=== PATIENT | male | born 1950 | race Caucasian/White ===

== ENCOUNTER 2018-06-27 19:20 | Inpatient (IN) | payer MEDICARE ==
[2018-06-27] MEDS ORDERED: Ondansetron INJ* 2 MG/ML VIAL IV ONE (19:46)
[2018-06-27] MEDS ORDERED: Morphine VIAL* 10 MG/ML 1 ML VIAL IV ONE ×2 (19:46→21:43)
--- NOTE | 2018-06-27 19:50 | ED ---
GI/ HPI - HPI Summary HPI Summary: This pt is a 68 y/o male presenting to [facility] via EMS for back pain, nausea and vomiting. Pt reports lower back pain began yesterday along with diffuse abdominal pain. He notes this morning he began to have nausea and vomiting. Denies hx of kidney stones. Pt does not know if he has had a fever, today in the ED he does not have a fever. Denies any surgeries in his abdomen. PMHx includes DM and HTN. Per nurse's note, pt has not been able to take his daily medications due to feeling ill. Pt lives alone at home. - History of Current Complaint Chief Complaint: EDNauseaVomitDiarrh Time Seen by Provider: 06/27/18 19:33 Stated Complaint: GENERAL ILLNESS Hx Obtained From: Patient Onset/Duration: Started Days Ago - 1, Still Present Timing: Lasting Days - 1 Current Severity: Severe Pain Intensity: 10 Location of Pain: Diffuse Associated Signs and Symptoms: Positive: Back Pain, Nausea, Vomiting, Abdominal Pain. Negative: Fever, Chills Aggravating Factor(s): Nothing Alleviating Factor(s): Nothing - Allergy/Home Medications Allergies/Adverse Reactions: Allergies Allergy/AdvReac Type Severity Reaction Status Date / Time latex Allergy Rash Verified 06/27/18 19:41 Home Medications: Home Medications Dulaglutide [Trulicity] 0.75 mg SQ WEEKLY 06/27/18 [History Confirmed 06/27/18] Lovastatin [Altoprev] 10 mg PO DAILY 06/27/18 [History Confirmed 06/27/18] Tamsulosin HCl [Flomax] 0.4 mg PO DAILY 06/27/18 [History Confirmed 06/27/18] PMH/Surg Hx/FS Hx/Imm Hx Endocrine/Hematology History: Reports: Hx Diabetes Cardiovascular History: Reports: Hx Hypertension Infectious Disease History: No Infectious Disease History: Denies: Traveled Outside the [place] in Last 30 Days - Social History Alcohol Use: None Substance Use Type: Reports: None Smoking Status (MU): Light Every Day Tobacco Smoker Review of Systems Negative: Fever Positive: Abdominal Pain, Vomiting, Nausea Musculoskeletal: Other - POS: back pain All Other Systems Reviewed And Are Negative: Yes Physical Exam - Summary Physical Exam Summary: VITAL SIGNS: Reviewed. GENERAL: Patient is a well-developed and nourished male who is lying comfortable in the stretcher. Patient is not in any acute respiratory distress. HEAD AND FACE: No signs of trauma. No ecchymosis, hematomas or skull depressions. No sinus tenderness. EYES: PERRLA, EOMI x 2, No injected conjunctiva, no nystagmus. EARS: Hearing grossly intact. Ear canals and tympanic membranes are within normal limits. MOUTH: Oropharynx within normal limits. NECK: Supple, trachea is midline, no adenopathy, no JVD, no carotid bruit, no c- spine tenderness, neck with full ROM. CHEST: Symmetric, no tenderness at palpation LUNGS: Clear to auscultation bilaterally. No wheezing or crackles. CVS: Regular rate and rhythm, S1 and S2 present, no murmurs or gallops appreciated. ABDOMEN: Soft, abdomen is diffusely tender, more on the LLQ. Abdomen is distended. No rebound no guarding, and no masses palpated. Hypoactive bowel sounds. EXTREMITIES: FROM in all major joints, no edema, no cyanosis or clubbing. NEURO: Alert and oriented x 3. No acute neurological deficits. Speech is normal and follows commands. SKIN: Dry and warm Triage Information Reviewed: Yes Vital Signs On Initial Exam: Initial Vitals Temp Pulse Resp BP Pulse Ox 98.9 F 127 20 214/129 96 06/27/18 19:32 06/27/18 19:32 06/27/18 19:32 06/27/18 19:32 06/27/18 19:32 Vital Signs Reviewed: Yes Diagnostics - Vital Signs Vital Signs Temp Pulse Resp BP Pulse Ox 06/27/18 19:32 98.9 F 127 20 214/129 96 - Laboratory Lab Results: Lab Results 06/27/18 Range/Units 19:29 POC Glucose (mg/dL) 188 H (70-100) mg/dL Result Diagrams: 06/27/18 19:56 06/27/18 19:56 Lab Statement: Any lab studies that have been ordered have been reviewed, and results considered in the medical decision making process. - Radiology Chest XR Radiology Interpretation Completed By: ED Physician Summary of Radiographic Findings: No acute process. Pending official radiology report. - CT Abdomen/Pelvis CT CT Interpretation Completed By: Radiologist Summary of CT Findings: IMPRESSION: 1. Findings suggesting early cholecystitis which can be confirmed with ultrasound. 2. Multiple hepatic cysts. No follow up indicated. 3. Bosniak type II renal cysts. No follow up indicated. Dr. Olivia has reviewed this report. - Ultrasound No standard instances Ultrasound Interpretation Completed By: Radiologist Summary of Ultrasound Findings: Gallbladder US IMPRESSION: 1. Equivocal findings of acute cholecystitis. Consider follow up HIDA scan. 2. Hepatic steatosis. 3. Simple hepatic and right renal cysts. No follow up indicated. Dr. Olivia has reviewed this report. - EKG 20:13 Cardiac Rate: NL - at 99 bpm EKG Rhythm: Sinus Rhythm Ectopy: PACs Summary of EKG Findings: Nonspecific T wave changes. Re-Evaluation - Re-Evaluation First Eval Re-Evaluation Time: 19:46 Comment: 200/101 BP manually. GIGU Course/Dx - Course Assessment/Plan: Pt is a 68 y/o male, with hx of DM and HTN, who presents for back pain, nausea and vomiting. Pt reports lower back pain began yesterday along with diffuse abdominal pain. He notes this morning he began to have nausea and vomiting. Denies hx of kidney stones. Pt does not know if he has had a fever, today in the ED he does not have a fever. Blood work, urinalysis, CT, US, EKG obtained. Labs show WBC of 15.7, glucose of 200. Abdomen/Pelvis CT shows 1. Findings suggesting early cholecystitis which can be confirmed with ultrasound. 2. Multiple hepatic cysts. No follow up indicated. 3. Bosniak type II renal cysts. No follow up indicated. Gallbladder US shows 1. Equivocal findings of acute cholecystitis. Consider follow up HIDA scan. 2. Hepatic steatosis. 3. Simple hepatic and right renal cysts. No follow up indicated. In the ED course the pt was given morphine, zofran, labetalol, hydralazine, zosyn. I discussed pt care with Dr. Cabello, surgeon, who consulted on the pt. Discussed the case with Dr. Hercules, hospitalist, who accepted the pt for admission. - Diagnoses Provider Diagnoses: Cholecystitis - Physician Notifications Discussed Care Of Patient With: Jayjay Cabello Time Discussed With Above Provider: 21:48 Instructed by Provider To: Other - I discussed pt care with Dr. Cabello, surgeon , who will see the pt. [23:17] Discussed with Dr. Hercules, hospitalist, who accepted the pt for admission. Discharge - Sign-Out/Discharge Documenting (check all that apply): Patient Departure - Admit to [facility] [place] Patient Received Moderate/Deep Sedation with Procedure: No - Discharge Plan Condition: Stable Disposition: ADMITTED TO [facility] Referrals: Kan Rojas DO [Primary Care Provider] - - Attestation Statements Document Initiated by Scribe: Yes Documenting Scribe: Kezia Lee Provider For Whom Scribe is Documenting (Include Credential): Tita Olivia MD Scribe Attestation: Kezia Pinedo, scribed for Tita Olivia MD on 06/28/18 at 0020. Status of Scribe Document: Ready
[2018-06-27 20:06] LABS: Hematocrit 52 % (42-52); Mean Corpuscular HGB Conc 35 g/dl (31-36); Mean Corpuscular Hemoglobin 31 pg (27-31); Mean Corpuscular Volume 90 fL (80-94); Platelet Count 261 10^3/ul (150-450); Red Cell Distribution Width 14 % (10.5-15); White Blood Count 15.7 10^3/ul (3.5-10.8)
[2018-06-27 20:22] LABS: Albumin 4.6 g/dL (3.2-5.2); Albumin/Globulin Ratio 1.8 (1-3); BUN/Creatinine Ratio 12.9 (8-20); C Reactive Protein 10.26 mg/L (<8.01); Calcium 9.8 mg/dL (8.6-10.3); EGFR African American 88.4 (>60); Globulin 2.6 g/dL (2-4); Magnesium 1.7 mg/dL (1.9-2.7); Potassium 3.6 mmol/L (3.5-5.0); Total Bilirubin 0.7 mg/dL (0.2-1.0); Total Protein 7.2 g/dL (6.4-8.9)
[2018-06-27 20:24] LABS: Activated Partial Thrombo Time 32.1 seconds (26.0-36.3); INR 0.98 (0.77-1.02)
[2018-06-27] MEDS ORDERED: Iodixanol* (CONTRAST) 320 MG/ML 100 ML SDV IV ONE (20:24)
[2018-06-27 20:39] LABS: ABS Basophils 0.1 10^3/ul (0-0.2); ABS Eosinophils 0 10^3/ul (0-0.6); ABS Lymphocytes 1.7 10^3/ul (1.0-4.8); ABS Monocytes 1.1 10^3/ul (0-0.8); ABS Neutrophils 12.8 10^3/ul (1.5-7.7); ABS Nucleated RBC 0 10^3/ul; Eosinophil % 0.1 %; Nucleated Red Blood Cells % 0
[2018-06-27] MEDS ORDERED: Piperacillin/Tazobac ADVAN(*) 3.375 GM in NS 0.9% 100 ML* 100 ML IVPB ONE (21:44)
[2018-06-27 21:55] LABS: Urine Appearance Clear; Urine Bacteria Absent (Absent); Urine Bilirubin Negative (Negative); Urine Blood 1+ (Negative); Urine Color Yellow; Urine Glucose 3+(>=500 mg/dL) (Negative); Urine Ketones 1+ (Negative); Urine Nitrite Negative (Negative); Urine Protein 2+(100 mg/dL) (Negative); Urine Red Blood Cell Trace(0-2/hpf) (Absent); Urine Specific Gravity 1.042 (1.010-1.030); Urine Urobilinogen Negative (Negative); Urine White Blood Cell Trace(0-5/hpf) (Absent)
[2018-06-27] MEDS ORDERED: Labetalol IV* 5 MG/ML 20 ML VIAL IV PUSH ONE (22:07)
[2018-06-27] MEDS ORDERED: hydrALAZINE IV* 20 MG/ML VIAL IV SLOW PU ONE (22:11)
[2018-06-27] MEDS ORDERED: Docusate CAP* 100 MG PO PRN (23:43)
[2018-06-27] MEDS ORDERED: Senna TAB PO PRN (23:43)
[2018-06-27] MEDS ORDERED: Al Hydrox/Mg Hydrox/Simet LIQ* 30 ML UDC PO PRN (23:43)
[2018-06-27] MEDS ORDERED: Acetaminophen TAB* 325 MG PO PRN (23:43)
[2018-06-27] MEDS ORDERED: Ondansetron INJ* 2 MG/ML VIAL IV PRN (23:43)
[2018-06-27] MEDS ORDERED: Zosyn per Pharmacy* NOTE FOLLOW UP SCH (23:45)
[2018-06-27] MEDS ORDERED: NS 0.9% 1000 ML** 1,000 ML IV SCH (23:45)
[2018-06-27] MEDS ORDERED: Magnesium Sulfate 2 GM IV* 2 GM/50 ML BAG IVPB ONE (23:49)
--- NOTE | 2018-06-28 00:43 | CONS ---
CONSULTATION REPORT: DATE OF CONSULT: 06/27/18 CHIEF COMPLAINT: Abdominal pain. HISTORY OF PRESENT ILLNESS: This is a pleasant 68-year-old gentleman who presented to the emergency room with a history of abdominal pain since yesterday. He had loose bowel movements in the afternoon which developed into more upper abdominal discomfort late in the evening today. He came to the emergency room here today. Workup here revealed likely early cholecystitis by CT scan. Ultrasound is pending. He has had persistent discomfort in his upper abdomen. PAST MEDICAL HISTORY: Diabetes and hypertension, on multiple medications for both. PAST SURGICAL HISTORY: No prior abdominal surgery. He describes a scrotal urologic related surgery which is unclear. SOCIAL HISTORY: He is here with his 2 brothers. REVIEW OF SYSTEMS: As per history of present illness. PHYSICAL EXAM: General: A pleasant gentleman complaining of abdominal pain. HEENT: His sclerae are anicteric. The oral mucosa is pink, somewhat dry. Neck is supple. Heart: S1, S2. Lungs: Clear anteriorly. Abdomen: Obese, soft, tender on the right side. Skin: No rash, petechiae, or jaundice. Neuro Exam: Grossly intact. LABORATORY DATA: Laboratory studies show elevated white blood cell count of 15.7. BUN 13, creatinine 0.1, glucose 200, lactic acid 1.6, total bili 0.7, amylase 33, lipase 20. IMPRESSION: Likely cholecystitis, diabetes, hypertension. PLAN: Plan will be for admission, evaluation by the medical service and potential cholecystectomy pending his response to IV antibiotics, hydration, and rest. [id number]/CPS #: [id number] MTDD
--- NOTE | 2018-06-28 01:33 | HP ---
CC: Kan Rojas DO * HISTORY AND PHYSICAL: DATE OF ADMISSION: 06/27/18 TIME OF EVALUATION: 2330 PRIMARY CARE PHYSICIAN: Kan Rojas DO CHIEF COMPLAINT: Abdominal pain, nausea, vomiting, diarrhea. HISTORY OF PRESENT ILLNESS: This is a 68-year-old male with a past medical history of diabetes, who presented to the emergency room with 2 days of worsening abdominal pain, nausea, vomiting, and diarrhea. The patient states his last meal was steak and milk and shortly thereafter he developed diffuse abdominal pain mostly in the periumbilical epigastric region with nausea, vomiting, and diarrhea, nonbloody. He has had not fevers, no shortness of breath, no chest pain. He does have somewhat of a cough. He states his sugars have been elevated over the past 2 days. Otherwise, review of systems is negative. The patient states he lives at home alone. He is independent of his ADLs. He does usually get around with a motorized scooter due to neuropathy and pain of his lower extremities secondary to his diabetes. The patient does not take the stairs due to his diabetes, but is independent of his ADLs and does not get exertional chest pain or shortness of breath. In the emergency room, the patient had labs, imaging. He was seen by Dr. Cabello from Surgery, who recommended admission for the hospitalist service for his acute cholecystitis. In the emergency room, the patient was given Zosyn , Zofran, a total of 8 mg of morphine and 10 mg of hydralazine. PAST MEDICAL HISTORY: 1. Diabetes, on insulin. 2. Diabetic neuropathy. 3. BPH. 4. Hyperlipidemia. MEDICATIONS: 1. Aspirin 81 mg p.o. daily. 2. Tamsulosin 0.4 mg daily. 3. Lovastatin 10 mg daily. 4. Trulicity 0.75 mg subcu weekly. The patient states he takes 2 other insulins, he is not sure of the name, one is 85 units in the morning and then 35 units before meals. ALLERGIES: LATEX. FAMILY HISTORY: Reviewed and noncontributory. SOCIAL HISTORY: As mentioned, the patient lives alone. He gets around with a motorized scooter. He is retired. He does smoke a pipe per day for the past 30 years. He drinks alcohol about 1 time a month. His healthcare proxy is his son, Shiva. Code status is full code. REVIEW OF SYSTEMS: A 14-point review of systems as mentioned in the HPI, otherwise negative. PHYSICAL EXAMINATION GENERAL: No acute distress, some mild abdominal discomfort. VITAL SIGNS: Temp 98.9, pulse rate is 93, respiratory rate 18, oxygen saturation 94% on room air, and blood pressure 142/78. HEENT: Head: Normocephalic. Pupils equal and reactive. Anicteric. Oropharynx: Mucous membranes are dry. NECK: Supple. No lymphadenopathy. RESPIRATORY: Diminished breath sounds. No wheezes, rhonchi, or rales. No increased work of breathing. CARDIAC: Tachycardic with ectopic beats. Soft systolic murmur heard throughout. ABDOMEN: Hyperactive bowel sounds, morbidly obese, soft, some diffuse tenderness. No rebound, no guarding. EXTREMITIES: No clubbing, cyanosis, or edema. NEUROLOGIC: Alert and oriented x3. No gross focal neurologic deficits. LABORATORY DATA: White count 15.7, hemoglobin 18, hematocrit 52, platelets 361. INR 0.98. Sodium 138, potassium 3.6, chloride 101, bicarb 25, BUN 13, creatinine 1.01, glucose 200. Lactic acid 1.6, mag is 1.7, CRP is 10. Urine is +2 ketones, +1 blood, +3 glucose. Specific gravity elevated at 1.042. RADIOGRAPHIC DATA: Abdomen and pelvis CT, findings suggestive of early cholecystitis, multiple hepatic cysts, Bosniak type 2 renal cyst. Gallbladder ultrasound, equivocal finding of acute cholecystitis, consider followup HIDA scan; hepatic steatosis; simple hepatic and right renal cysts. EKG, sinus tachycardia with PACs, some non-specific ST changes. No prior EKG to compare to. Chest x-ray, no acute findings. ASSESSMENT: This is a 68-year-old male with a past medical history of diabetes , on insulin, presented to the emergency room with acute onset of abdominal pain , nausea, vomiting, and diarrhea, found to have early onset acute cholecystitis. 1. Nausea, vomiting, diarrhea, and abdominal pain. Assessment: The patient's findings based on imaging are consistent with early onset acute cholecystitis. The patient with an elevated white count as well. He was given a dose of Zosyn. Plan, Dr. Cabello evaluated the patient in the emergency room. He recommended to keep him n.p.o. and potentially will have surgery in the morning. We will continue him on IV fluids and Zosyn, pain control, and antiemetics. 2. Chronic medical problems, diabetes. We will check his hemoglobin A1c. We will hold his Trulicity. We will lower his Lantus dose in the setting of n.p.o. and not entirely clear that if he is in fact taking Lantus at [address] him on a regular insulin of sliding scale q.6 hours while he is n.p.o. 3. Benign prostatic hypertrophy. Continue his tamsulosin. 4. Hyperlipidemia. We will hold his lovastatin. We do not see this is on formulary. 5. FEN: NPO with ice chips and IV fluids. 6. DVT prophylaxis: The patient score is high risk. I will put him on heparin subcu t.i.d. 7. Code status: Full code. PATIENT TIME: Greater than 45 minutes spent doing the history and physical, more than half the time spent in direct patient contact. [id number]/CPS #: [id number] RODDY
[2018-06-28] MEDS: Insulin REGULAR(*) 1 UNITS UNIT SUBCUT SCH ×4 (01:53→17:40)
[2018-06-28] MEDS: Morphine INJ* 2 MG/ML 1 ML SYRINGE (TWO MG - NEW SYRINGE VERSION) IV PRN ×2 (01:57→07:51)
[2018-06-28] MEDS: ZOSYN 3.375 GM Q8H per EXTENDED INFUSION IVPB SCH ×4 (03:30→12:40)
[2018-06-28 05:59] LABS: ABS Basophils 0.1 10^3/ul (0-0.2); ABS Eosinophils 0 10^3/ul (0-0.6); ABS Lymphocytes 2.3 10^3/ul (1.0-4.8); ABS Monocytes 1.5 10^3/ul (0-0.8); ABS Neutrophils 9.6 10^3/ul (1.5-7.7); ABS Nucleated RBC 0 10^3/ul; Eosinophil % 0.4 %; Hematocrit 49 % (42-52); Hemoglobin 16.8 g/dl (14.0-18.0); Lymphocyte % 17.3 %; Mean Corpuscular HGB Conc 34 g/dl (31-36); Mean Corpuscular Hemoglobin 31 pg (27-31); Mean Corpuscular Volume 90 fL (80-94); Mean Platelet Volume 8.1 fL (7.4-10.4); Nucleated Red Blood Cells % 0; Platelet Count 231 10^3/ul (150-450); Red Blood Count 5.47 10^6/ul (4.00-5.40); Red Cell Distribution Width 14 % (10.5-15); White Blood Count 13.6 10^3/ul (3.5-10.8)
[2018-06-28 06:16] LABS: BUN/Creatinine Ratio 13.6 (8-20); Calcium 9.1 mg/dL (8.6-10.3); EGFR African American 86.4 (>60); EGFR Non-African American 71.4 (>60); Magnesium 2.3 mg/dL (1.9-2.7); Potassium 3.2 mmol/L (3.5-5.0)
[2018-06-28] MEDS: Insulin GLARGINE(*) 1 UNITS UNIT SUBCUT SCH (07:51)
[2018-06-28] MEDS: Heparin VIAL(*) 5000 UNITS/ML VIAL (FIVE THOUSAND) SUBCUT SCH ×3 (07:52→21:48)
[2018-06-28] MEDS ORDERED: DiMENhydriNATE IV* 50 MG/ML VIAL IV PUSH ONE (10:50)
[2018-06-28] MEDS ORDERED: Ondansetron INJ* 2 MG/ML VIAL ONE ×2 (10:50→12:43)
[2018-06-28] MEDS ORDERED: Famotidine IV* 10 MG/ML 2 ML (20 mg) IV ONE (10:50)
[2018-06-28] MEDS ORDERED: Buffered Lidocaine 1% SYRIN* 1 ML/SYRINGE INTRADERM ONE (10:50)
[2018-06-28] MEDS ORDERED: ceFAZolin 2 GM PREMIX in ORs 2 GM/50 ML BAG IVPB ONE (12:14)
[2018-06-28] MEDS ORDERED: KCL 20 MEQ/100 ML IVPREMIX* 20 MEQ/100 ML BAG IV ONE (12:15)
[2018-06-28] MEDS ORDERED: Cisatracurium* 2 MG/ML MDV 5 ML ONE (12:43)
[2018-06-28] MEDS ORDERED: Famotidine IV* 10 MG/ML 2 ML (20 mg) ONE (12:43)
[2018-06-28] MEDS ORDERED: Lidocaine 2% PF * 5 ML VIAL ONE (12:43)
[2018-06-28] MEDS ORDERED: Dexamethasone IV* 4 MG/ML 1 ML (4 MG) ONE ×2 (12:43→13:50)
[2018-06-28] MEDS ORDERED: Ketorolac INJ* 30 MG/ML 1 ML VIAL ONE (12:43)
[2018-06-28] MEDS ORDERED: Ondansetron ODT TAB* 4 MG ONE (12:43)
[2018-06-28] MEDS ORDERED: Midazolam* 1 MG/ML 5 ML VIAL (5 MG) ONE (12:43)
[2018-06-28] MEDS ORDERED: fentaNYL* 50 MCG/ML 5 ML VIAL (250 MCG VIAL) ONE (12:43)
[2018-06-28] MEDS ORDERED: Propofol* 10 MG/ML 20 ML BTL ONE (12:43)
[2018-06-28] MEDS: Lactated Ringers 1000 ML Bag* 1,000 ML IV SCH ×2 (12:45→16:15)
[2018-06-28] MEDS ORDERED: EPHEDrine (Pressors)* 50 MG/ML VIAL ONE (13:11)
[2018-06-28] MEDS ORDERED: Bupivacaine 0.5% W/EPI SDV* 30 ML VIAL ONE (13:23)
[2018-06-28] MEDS ORDERED: Phenylephrine INJ* 10 MG/ML 1 ML VIAL (10 MG) ONE (13:40)
[2018-06-28] MEDS ORDERED: Metoprolol Tartrate IV* 1 MG/ML 5 ML VIAL ONE (13:41)
[2018-06-28] MEDS ORDERED: Neostigmine Methylsulfate* 1 MG/ML 10 ML VIAL (1 mg/ml) ONE (13:50)
[2018-06-28] MEDS ORDERED: fentaNYL* 50 MCG/ML 2 ML VIAL (100 MCG VIAL) IV PRN (13:56)
[2018-06-28] MEDS ORDERED: Naloxone* 0.4 MG/ML 1 ML VIAL IV PRN (13:56)
[2018-06-28] MEDS ORDERED: DiMENhydriNATE IV* 50 MG/ML VIAL IV PUSH PRN (13:56)
--- NOTE | 2018-06-28 17:53 | OP ---
DATE OF OPERATION: 06/28/18 - ROOM #411 DATE OF : 46 SURGEON: Jayjay Cabello MD PRE-OP DIAGNOSIS: Cholecystitis. POST-OP DIAGNOSIS: Cholecystitis. OPERATIVE PROCEDURE: Laparoscopic cholecystectomy. INDICATIONS FOR PROCEDURE: Cholecystitis. Risks included but not limited to bleeding, infection, injury to intraabdominal contents including the bowel, bile duct, and liver were explained to the patient. He seemed to understand and agreed to the procedure and all questions were answered. DESCRIPTION OF PROCEDURE: The patient was taken to the operating room, placed supine. Preoperative antibiotics were given. After the successful induction of general endotracheal anesthesia, the abdomen was prepped and draped in sterile fashion. A subxiphoid 5 mm trochar was placed under direct visualization of the camera using a bladeless Optiview trocar. Pneumoperitoneum was achieved at 15 mmHg. Camera was placed in the abdomen. The abdomen was scanned. There was no obvious injury from trocar placement. An umbilical and 2 right-sided trocars were placed, 12 mm and two 5 mm respectively. The fundus of the gallbladder was grasped and retracted up and over the liver. The cystic duct was identified, isolated, clipped, and divided. The cystic artery was identified, isolated, clipped, and divided. The gallbladder was removed from the hepatic bed using scissors and cautery. It was placed into an Endo bag and removed through the umbilical port site. The right upper quadrant was irrigated and aspirated dry. EBL minimal. Hemostasis was intact. The umbilical fascia was closed with 0 Vicryl and the skin was closed with Monocryl and glue at each site. He tolerated the procedure well. He was extubated and taken to recovery in stable condition. [id number]/[facility] #: [id number] [facility]
[2018-06-28] MEDS ORDERED: Tamsulosin CAP* 0.4 MG PO SCH (21:00)
[2018-06-28] MEDS ORDERED: Dextrose 50% Syringe 50 ML* 25 GM/50 ML SYRINGE IV PUSH PRN ×2 (21:21)
[2018-06-28] MEDS: Insulin LISPRO* 1 UNITS UNIT SUBCUT SCH ×2 (21:56→22:03)
[2018-06-29] MEDS: Heparin VIAL(*) 5000 UNITS/ML VIAL (FIVE THOUSAND) SUBCUT SCH (07:27)
[2018-06-29 07:44] VITALS: BP 120/66
--- NOTE | 2018-06-29 08:29 | PN ---
Subjective Date of Service: 06/28/18 Interval History: Pain improved. Hungry. No new c/o. Objective Active Medications: Acetaminophen (Tylenol Tab*) 650 mg PO Q4H PRN PRN Reason: FEVER/PAIN Al Hydrox/Mg Hydrox/Simethicone (Maalox Plus*) 30 ml PO Q6H PRN PRN Reason: INDIGESTION Dextrose (D50w Syringe 50 Ml*) 12.5 gm IV PUSH .FOR FS < 60 - SS PRN PRN Reason: FS < 60 Dimenhydrinate (Dramamine Iv*) 25 mg IV PUSH ONCE PRN PRN Reason: NAUSEA/VOMITING Docusate Sodium (Colace Cap*) 100 mg PO BID PRN PRN Reason: CONSTIPATION Heparin Sodium (Porcine) (Heparin Vial(*)) 5,000 units SUBCUT Q8HR [facility] Last Admin: 06/29/18 07:27 Dose: 5,000 units Lactated Ringer's (Lactated Ringers 1000 Ml Bag*) 1,000 mls @ 125 mls/hr IV PER RATE [facility] Last Admin: 06/28/18 16:15 Dose: 125 mls/hr Influenza Virus Vaccine (Fluarix *Quad* *) 0.5 ml IM .ONCE ONE Stop: 06/29/18 09:01 Insulin Glargine (Lantus(*)) 40 units SUBCUT Q24H [facility] Last Admin: 06/28/18 07:51 Dose: 40 units Insulin Human Lispro (Humalog*) 0 units SUBCUT [facility]; Protocol Last Admin: 06/28/18 22:03 Dose: Not Given Insulin Human Lispro (Humalog*) 0 units SUBCUT [facility]; Protocol Last Admin: 06/28/18 21:56 Dose: 9 units Morphine Sulfate (Morphine Inj ((Syringe))*) 2 mg IV Q4H PRN PRN Reason: PAIN - MILD Last Admin: 06/28/18 07:51 Dose: 2 mg Ondansetron HCl (Zofran Inj*) 4 mg IV Q4H PRN PRN Reason: NAUSEA/VOMITING Senna (Senokot Tab*) 1 tab PO BID PRN PRN Reason: CONSTIPATION Tamsulosin HCl (Flomax Cap*) 0.4 mg PO BEDTIME [facility] Last Admin: 06/28/18 21:26 Dose: 0.4 mg Vital Signs - 8 hr 06/29/18 06/29/18 06/29/18 00:26 01:10 01:53 Temperature 98.3 F Pulse Rate 74 Respiratory 18 Rate Blood Pressure 131/66 (mmHg) O2 Sat by Pulse 95 98 97 Oximetry 06/29/18 06/29/18 06/29/18 03:16 07:22 07:43 Temperature 98.4 F 97.6 F Pulse Rate 75 81 Respiratory 18 17 16 Rate Blood Pressure 138/65 120/66 (mmHg) O2 Sat by Pulse 96 99 99 Oximetry Oxygen Devices in Use Now: None Appearance: Alert, partly up in bed. In good spirits. Looks comfortable. Eyes: No Scleral Icterus Abdominal: No Hepatosplenomegaly, - - mild to mod RUQ tenderness, nl BS Result Diagrams: 06/28/18 05:42 06/28/18 05:42 Additional Lab and Data: Lab Results 06/27/18 Range/Units 19:29 POC Glucose (mg/dL) 188 H (70-100) mg/dL Microbiology and Other Data: Microbiology 06/27/18 19:56 Aerobic Blood Culture - Preliminary Blood Venous Anaerobic Blood Culture - Preliminary Blood MRSA/MSSA (PCR) - Final Mrsa Negative S.aureus Negative 06/27/18 19:56 Aerobic Blood Culture - Preliminary Blood Venous No Growth Day 1 Anaerobic Blood Culture - Preliminary No Growth Day 1 06/27/18 21:44 Urine Culture - Final Urine No Growth (<1,000 CFU/mL) Assess/Plan/Problems-Billing Assessment: - Patient Problems (1) Cholecystitis Current Visit: Yes Status: Acute Code(s): K81.9 - CHOLECYSTITIS, UNSPECIFIED SNOMED Code(s): 71959181 Comment: Continue pip/rosemary. Surgical managment per Dr. Cabello. (2) Diabetes Current Visit: Yes Status: Acute Code(s): E11.9 - TYPE 2 DIABETES MELLITUS WITHOUT COMPLICATIONS SNOMED Code(s): 29734972 Comment: Lantus and SS Lispro. (3) BPH (benign prostatic hyperplasia) Current Visit: Yes Status: Acute Code(s): N40.0 - BENIGN PROSTATIC HYPERPLASIA WITHOUT LOWER URINRY TRACT SYMP SNOMED Code(s): 013120103 Comment: Continue tamsulosin. (4) Hyperlipidemia Current Visit: Yes Status: Acute Code(s): E78.5 - HYPERLIPIDEMIA, UNSPECIFIED SNOMED Code(s): 33147014 Comment: Resume home statin on discharge.
--- NOTE | 2018-06-29 08:47 | PN ---
Subjective Date of Service: 06/29/18 Interval History: Mild chronic back pain at his baseline. No abd pain, nausea. Good appetite. Anxious to go home. Objective Active Medications: Acetaminophen (Tylenol Tab*) 650 mg PO Q4H PRN PRN Reason: FEVER/PAIN Al Hydrox/Mg Hydrox/Simethicone (Maalox Plus*) 30 ml PO Q6H PRN PRN Reason: INDIGESTION Dextrose (D50w Syringe 50 Ml*) 12.5 gm IV PUSH .FOR FS < 60 - SS PRN PRN Reason: FS < 60 Dimenhydrinate (Dramamine Iv*) 25 mg IV PUSH ONCE PRN PRN Reason: NAUSEA/VOMITING Docusate Sodium (Colace Cap*) 100 mg PO BID PRN PRN Reason: CONSTIPATION Heparin Sodium (Porcine) (Heparin Vial(*)) 5,000 units SUBCUT Q8HR [facility] Last Admin: 06/29/18 07:27 Dose: 5,000 units Lactated Ringer's (Lactated Ringers 1000 Ml Bag*) 1,000 mls @ 125 mls/hr IV PER RATE [facility] Last Admin: 06/28/18 16:15 Dose: 125 mls/hr Influenza Virus Vaccine (Fluarix *Quad* *) 0.5 ml IM .ONCE ONE Stop: 06/29/18 09:01 Insulin Glargine (Lantus(*)) 40 units SUBCUT Q24H [facility] Last Admin: 06/28/18 07:51 Dose: 40 units Insulin Human Lispro (Humalog*) 0 units SUBCUT [facility]; Protocol Last Admin: 06/28/18 22:03 Dose: Not Given Insulin Human Lispro (Humalog*) 0 units SUBCUT [facility]; Protocol Last Admin: 06/28/18 21:56 Dose: 9 units Morphine Sulfate (Morphine Inj ((Syringe))*) 2 mg IV Q4H PRN PRN Reason: PAIN - MILD Last Admin: 06/28/18 07:51 Dose: 2 mg Ondansetron HCl (Zofran Inj*) 4 mg IV Q4H PRN PRN Reason: NAUSEA/VOMITING Senna (Senokot Tab*) 1 tab PO BID PRN PRN Reason: CONSTIPATION Tamsulosin HCl (Flomax Cap*) 0.4 mg PO BEDTIME [facility] Last Admin: 06/28/18 21:26 Dose: 0.4 mg Vital Signs - 8 hr 06/29/18 06/29/18 06/29/18 01:10 01:53 03:16 Temperature 98.3 F 98.4 F Pulse Rate 74 75 Respiratory 18 18 Rate Blood Pressure 131/66 138/65 (mmHg) O2 Sat by Pulse 98 97 96 Oximetry 06/29/18 06/29/18 07:22 07:43 Temperature 97.6 F Pulse Rate 81 Respiratory 17 16 Rate Blood Pressure 120/66 (mmHg) O2 Sat by Pulse 99 99 Oximetry Oxygen Devices in Use Now: None Appearance: Alert, sitting up in bed. In good spirits. Looks comfortable. Eyes: No Scleral Icterus Abdominal: NL Sounds; No Tenderness; No Distention, No Hepatosplenomegaly, - - surgical wounds look good Extremities: No Edema, No Clubbing, Cyanosis, - Skin: No Rash or Ulcers, No Nodules or Sclerosis, - Neurological: Alert and Oriented x 3, NL Sensation Result Diagrams: 06/28/18 05:42 06/28/18 05:42 Additional Lab and Data: Lab Results 06/27/18 Range/Units 19:29 POC Glucose (mg/dL) 188 H (70-100) mg/dL Microbiology and Other Data: Microbiology 06/27/18 19:56 Aerobic Blood Culture - Preliminary Blood Venous Anaerobic Blood Culture - Preliminary Blood MRSA/MSSA (PCR) - Final Mrsa Negative S.aureus Negative 06/27/18 19:56 Aerobic Blood Culture - Preliminary Blood Venous No Growth Day 1 Anaerobic Blood Culture - Preliminary No Growth Day 1 06/27/18 21:44 Urine Culture - Final Urine No Growth (<1,000 CFU/mL) Assess/Plan/Problems-Billing Assessment: - Patient Problems (1) Cholecystitis Current Visit: Yes Status: Acute Code(s): K81.9 - CHOLECYSTITIS, UNSPECIFIED SNOMED Code(s): 86470536 Comment: S/P lap maco 06/28/18. Fup per Dr. Cabello. (2) Diabetes Current Visit: Yes Status: Acute Code(s): E11.9 - TYPE 2 DIABETES MELLITUS WITHOUT COMPLICATIONS SNOMED Code(s): 92033490 Comment: Lantus and SS Lispro. (3) BPH (benign prostatic hyperplasia) Current Visit: Yes Status: Acute Code(s): N40.0 - BENIGN PROSTATIC HYPERPLASIA WITHOUT LOWER URINRY TRACT SYMP SNOMED Code(s): 261265712 Comment: Continue tamsulosin. (4) Hyperlipidemia Current Visit: Yes Status: Acute Code(s): E78.5 - HYPERLIPIDEMIA, UNSPECIFIED SNOMED Code(s): 56409417 Comment: Resume home statin on discharge.
[2018-06-29] MEDS: Insulin LISPRO* 1 UNITS UNIT SUBCUT SCH ×2 (09:16)
[2018-06-29] MEDS: Insulin GLARGINE(*) 1 UNITS UNIT SUBCUT SCH (09:18)
--- NOTE | 2018-06-29 11:00 | PN ---
Progress Note - Progress Note Date of Service: 06/29/18 SOAP: Subjective: []no pain, passing flatus, wants to go home, tolerating diet Objective: []benign abdomen, incisions CDI Assessment: []stable postop Plan: []DC to home, fu as needed
--- NOTE | 2018-06-29 11:57 | PN ---
Progress Note - Progress Note Date of Service: 06/29/18 Note: Time spent on discharge including exam of patient, discussion with patient, nurse, CM, PA Sanchez, review of EMR and preparation of discharge documents is 35 minutes.
--- NOTE | 2018-06-29 13:07 | DS ---
CC: Dr. Kan Rojas; Dr. Cabello DISCHARGE SUMMARY: DATE OF ADMISSION: DATE OF DISCHARGE: 06/29/18 HISTORY: This 68-year-old man presented with abdominal pain, nausea, vomiting, and diarrhea. His rueda gars have been somewhat elevated in the past 2 days. He was felt to have acute cholecystitis and was started on piperacillin/tazobactam. Dr. Cabello saw him in consultation. He did laparoscopic cholec ystectomy on 06/28/18. He felt that no further antibiotics were needed. The patient tolerated the s urgery very well and was in good shape on discharge. Blood sugars were in adequate control. FINAL DIAGNOSES: 1. Cholecystitis. 2. Diabetes. 3. Benign prostatic hypertrophy. 4. Hyperlipidemia. DISCHARGE MEDICATIONS: 1. Tamsulosin 0.4 mg daily. 2. Dulaglutide 0.75 mg subcu weekly. 3. Lovastatin 10 mg daily. 4. Degludec insulin 85 units daily. CONDITION ON DISCHARGE: Improved. DISPOSITION ON DISCHARGE: Discharged home. [id number]/[facility] #: [id number]
== END 2018-06-29 12:00 | disposition home or self-care (01) | DRG 419 ==
LOC: ED 19:20 → MED 06-28 00:31
PROVIDERS: ADMIT Pediatrics; ATTEND Internal Medicine
PROC: 0FT44ZZ Resection of Gallbladder, Percutaneous Endoscopic Approach (ICD-10-PCS; principal; 2018-06-28 12:45)
DX: K81.0 Acute cholecystitis (principal); N40.0 Benign prostatic hyperplasia without lower urinary tract symptoms; E78.5 Hyperlipidemia, unspecified; E11.40 Type 2 diabetes mellitus with diabetic neuropathy, unspecified; I10 Essential (primary) hypertension; K76.0 Fatty (change of) liver, not elsewhere classified; K76.89 Other specified diseases of liver; N28.1 Cyst of kidney, acquired; G89.29 Other chronic pain; M54.9 Dorsalgia, unspecified; Z91.040 Latex allergy status; Z72.89 Other problems related to lifestyle; Z79.4 Long term (current) use of insulin; F17.290 Nicotine dependence, other tobacco product, uncomplicated
CPT/HCPCS: 36415; 71045; 74177; 76705; 80048; 80053; 81003; 81015; 82150; 83036; 83605; 83690; 83735; 85025; 85610; 85730; 86140; 86850; 86900; 86901; 87040; 87077; 87086; 87150; 87205; 88304; 90686; 93005; 99284; A9270-GY; J0360; J0690; J1100; J1644; J1885; J2250; J2270; J2405; J2543; J2704; J2710; J3010; J3475; J3480; J3490; Q9967

== ENCOUNTER 2018-10-16 12:57 | Emergency (ER) | payer MEDICARE, OTHER ==
[2018-10-16] MEDS ORDERED: NS 0.9% 1000 ML** 2,000 ML IV ONE (13:46)
--- NOTE | 2018-10-16 13:50 | ED ---
HPI Diabetic - HPI Summary HPI Summary: A 68 y/o male brought in by [facility] presents to [facility] with a chief complaint of high blood glucose at 450 today. The patient reports that he took insulin three times today, taking 80 ccs in the morning and 35 units before eating anything. He reports that he is very thirsty and has no appetite. He states that he has a fever, cough, headache and diarrhea, claiming that the diarrhea has been going on for months, but denies dysuria. - History Of Current Complaint Chief Complaint: EDGeneral Time Seen by Provider: 10/16/18 13:26 Hx Obtained From: Patient Onset/Duration: Sudden Onset, Lasting Hours, Still Present Timing: Hours Severity Initially: Mild Severity Currently: None Character: Alert Aggravating: Nothing Alleviating: Nothing Associated Signs & Symptoms: Diarrhea, Fever - Pt reports fever, temperature is 97.8 at triage - Allergies/Home Medications Allergies/Adverse Reactions: Allergies Allergy/AdvReac Type Severity Reaction Status Date / Time latex Allergy Rash Verified 10/16/18 13:10 Home Medications: Home Medications Insulin Aspart [Novolog Penfill] 80 unit SC TID WITH MEALS 10/16/18 [History Confirmed 10/16/18] PMH/Surg Hx/FS Hx/Imm Hx Endocrine/Hematology History: Reports: Hx Diabetes Cardiovascular History: Reports: Hx Hypertension Respiratory History: Reports: Hx Seasonal Allergies - or at least wakes up with stuffy nose Denies: Hx Pneumonia GI History: Reports: Hx Ulcer - in his 20s, resolved at the time Denies: Hx Gastrointestinal Bleed Musculoskeletal History: Reports: Hx Back Problems, Other Musculoskeletal History - back and hips injured in fall in his 20s Sensory History: Reports: Hx Contacts or Glasses, Other Sensory Impairments - toes numb Denies: Hx Hearing Aid Opthamlomology History: Reports: Hx Contacts or Glasses, Other Sensory Impairments - toes numb - Surgical History Surgery Procedure, Year, and Place: Thumb. scrotal sx to remove fluid Infectious Disease History: No Infectious Disease History: Denies: Traveled Outside the [place] in Last 30 Days - Family History Known Family History: Positive: Diabetes - Social History Alcohol Use: Occasionally Alcohol Amount: 2 beers Substance Use Type: Reports: None Smoking Status (MU): Light Every Day Tobacco Smoker Type: Pipe Review of Systems Positive: Fever - Pt reports fever, temperature at triage is 97.8, Other - positive: high blood glucose Positive: Cough Positive: Diarrhea, Other - positive: thirsty, lack of appetite Negative: dysuria Positive: Headache All Other Systems Reviewed And Are Negative: Yes Physical Exam - Summary Physical Exam Summary: VITAL SIGNS: Reviewed. GENERAL: Patient is a well-developed and nourished MALE who is lying comfortable in the stretcher. Patient is not in any acute respiratory distress. HEAD AND FACE: No signs of trauma. No ecchymosis, hematomas or skull depressions. No sinus tenderness. EYES: PERRLA, EOMI x 2, No injected conjunctiva, no nystagmus. EARS: Hearing grossly intact. Ear canals and tympanic membranes are within normal limits. MOUTH: Dry oral mucosa. NECK: Supple, trachea is midline, no adenopathy, no JVD, no carotid bruit, no c- spine tenderness, neck with full ROM. CHEST: Symmetric, no tenderness at palpation LUNGS: Clear to auscultation bilaterally. No wheezing or crackles. CVS: Regular rate and rhythm, S1 and S2 present, no murmurs or gallops appreciated. ABDOMEN: Soft, non-tender. No signs of distention. No rebound no guarding, and no masses palpated. Increased bowel sounds. EXTREMITIES: FROM in all major joints, no edema, no cyanosis or clubbing. NEURO: Alert and oriented x 3. No acute neurological deficits. Speech is normal and follows commands. SKIN: Dry and warm. Triage Information Reviewed: Yes Vital Signs On Initial Exam: Initial Vitals Temp Pulse Resp BP Pulse Ox 97.8 F 90 16 131/85 96 10/16/18 13:06 10/16/18 13:06 10/16/18 13:06 10/16/18 13:06 10/16/18 13:06 Vital Signs Reviewed: Yes Diagnostics - Vital Signs Vital Signs Temp Pulse Resp BP Pulse Ox 10/16/18 13:06 97.8 F 90 16 131/85 96 - Laboratory Result Diagrams: 10/16/18 13:57 10/16/18 13:57 Lab Statement: Any lab studies that have been ordered have been reviewed, and results considered in the medical decision making process. - Radiology abdomen x-ray Radiology Interpretation Completed By: Radiologist Summary of Radiographic Findings: No abdominal pelvic pathologic process evident. ED physician has reviewed this imaging report. Diabetic Course/Dx - Course Assessment/Plan: A 68 y/o male brought in by [facility] presents to [facility] with a chief complaint of high blood glucose at 450 today. The patient reports that he took insulin three times today, taking 80 ccs in the morning and 35 units before eating anything. He reports that he is very thirsty and has no appetite. He states that he has a fever, cough, headache and diarrhea, claiming that the diarrhea has been going on for months, but denies dysuria. Blood test results without any significant abnormality except for glucose of 288 , total protein 6.3. In the ED course the patient was given IV fluids, and he was given insulin as total of 10 units and right now the fingerstick is 191. Since the patient is feeling better, the patient is tolerating oral fluids and food the patient will be discharged home with follow-up with the primary care physician. Patient is hemodynamically stable alert oriented 3. I discussed all the findings and test results with the patient. Patient was instructed to return to the emergency room immediately if any of the symptoms return or worsens. Plan of care was discussed with the patient and he understands and agrees. All questions were answered at patient satisfaction. There were no further complaints or concerns. Lung exam before discharge: CTA B/L. Good air exchange. No wheezing or crackles heard. CVS: S1 and S2 present. No murmurs appreciated. Patient is alert and oriented x 3. Patient is hemodynamically stable. Patient will be discharged home with follow up PCP in the next 2-3 days. - Diagnoses Differential Dx: Diabetic Ketoacidosis, Gestational Diabetes, Hyperosmolar State , Hypoglycemia Provider Diagnoses: Hyperglycemia Discharge - Sign-Out/Discharge Documenting (check all that apply): Patient Departure - DC Patient Received Moderate/Deep Sedation with Procedure: No - Discharge Plan Condition: Stable Disposition: HOME Referrals: Kan Rojas DO [Primary Care Provider] - (2-3 days) Additional Instructions: FOLLOW UP WITH YOUR PRIMARY CARE PROVIDER WITHIN ONE WEEK. RETURN TO THE ED FOR ANY WORSENING OR NEW SYMPTOMS. - Billing Disposition and Condition Condition: STABLE Disposition: Home - Attestation Statements Document Initiated by Scribe: Yes Documenting Scribe: Keven Gardner Provider For Whom Scribe is Documenting (Include Credential): Quinn Lombardo MD Scribe Attestation: Keven Pinedo, scribed for Quinn Lombardo MD on 10/17/18 at 0813. Scribe Documentation Reviewed: Yes Provider Attestation: The documentation as recorded by the scribe, Keven Gardner accurately reflects the service I personally performed and the decisions made by me, Quinn Lombardo MD Status of Scribe Document: Viewed
[2018-10-16] MEDS ORDERED: Ibuprofen TAB* 800 MG PO ONE (14:06)
[2018-10-16 14:20] LABS: ABS Eosinophils 0.2 10^3/ul (0-0.6); ABS Lymphocytes 2.2 10^3/ul (1.0-4.8); ABS Monocytes 0.8 10^3/ul (0-0.8); ABS Neutrophils 4.6 10^3/ul (1.5-7.7); Eosinophil % 2.2 %; Hematocrit 48 % (42-52); Hemoglobin 16.5 g/dL (14.0-18.0); Lymphocyte % 28.2 %; Mean Corpuscular HGB Conc 34 g/dL (31-36); Mean Corpuscular Hemoglobin 31 pg (27-31); Mean Corpuscular Volume 90 fL (80-94); Mean Platelet Volume 8.3 fL (7.4-10.4); Nucleated Red Blood Cells % 0.1; Platelet Count 203 10^3/uL (150-450); Red Blood Count 5.33 10^6 /uL (4.18-5.48); Red Cell Distribution Width 14 % (10.5-15); White Blood Count 7.8 10^3/uL (3.5-10.8)
[2018-10-16 14:38] LABS: Albumin/Globulin Ratio 1.7 (1-3); BUN/Creatinine Ratio 16.8 (8-20); C Reactive Protein 3.31 mg/L (<8.01); Calcium 9.4 mg/dL (8.6-10.3); EGFR African American 88.4 (>60); Globulin 2.3 g/dL (2-4); Magnesium 2.1 mg/dL (1.9-2.7); Total Bilirubin 0.4 mg/dL (0.2-1.0); Total Protein 6.3 g/dL (6.4-8.9)
[2018-10-16] MEDS ORDERED: Insulin REGULAR(*) 1 UNITS UNIT IV PUSH ONE ×2 (15:07→17:27)
[2018-10-16 15:17] LABS: Potassium 4.2 mmol/L (3.5-5.0)
[2018-10-16 16:29] LABS: Urine Appearance Clear; Urine Bilirubin Negative (Negative); Urine Blood Negative (Negative); Urine Color Yellow; Urine Glucose 3+(>=500 mg/dL) (Negative); Urine Ketones Negative (Negative); Urine Nitrite Negative (Negative); Urine Protein Negative (Negative); Urine Specific Gravity 1.022 (1.010-1.030); Urine Urobilinogen Negative (Negative)
[2018-10-16 18:39] VITALS: BP 137/88
== END 2018-10-16 18:41 | disposition home or self-care (01) ==
LOC: ED 12:57
DX: E11.65 Type 2 diabetes mellitus with hyperglycemia (principal); Z79.4 Long term (current) use of insulin; R19.7 Diarrhea, unspecified; R50.9 Fever, unspecified; R51 Headache; Z91.040 Latex allergy status; F17.290 Nicotine dependence, other tobacco product, uncomplicated
CPT/HCPCS: 36415; 74019; 80053; 81003; 82150; 82550; 82947; 83605; 83690; 83735; 83880; 85025; 86140; 96361; 96374; 96376; 99284; A9270-GY